=== PATIENT | female | born 1995 | race Caucasian/White ===

== ENCOUNTER 2017-01-30 03:23 | Emergency (ER) | payer BC ==
[~2017-01-30] VITALS: Ht 162.6 cm; Wt 74.8 kg
[~2017-01-30 03:23] MED LIST: BACTRIM DS TAB1 EACH PO; CRUTCH1 EACH; HYDROCODON-ACE1 EA11 PO; IBUPROFEN200 M1 PO; IBUPROFEN800 MG PO; KEFLEX500 MG PO; MIRTAZAPINE30 MG PO; NORCO 5-325 TA1 EACH PO; OXYCODONE HCL5 MG PO; SERTRALINE HCL100 MG PO; VITAMIN D5000 UNIT PO; ZOLOFT100 MG PO
== END 2017-01-30 03:58 | disposition home or self-care (01) ==
LOC: ED 03:23
DX: S00.83XA Contusion of other part of head, initial encounter (principal); F10.129 Alcohol abuse with intoxication, unspecified; F32.9 Major depressive disorder, single episode, unspecified; J45.909 Unspecified asthma, uncomplicated; F41.9 Anxiety disorder, unspecified; F17.200 Nicotine dependence, unspecified, uncomplicated; Z90.49 Acquired absence of other specified parts of digestive tract; Z88.8 Allergy status to other drugs, medicaments and biological substances; Z88.2 Allergy status to sulfonamides; Z79.899 Other long term (current) drug therapy; W01.198A Fall on same level from slipping, tripping and stumbling with subsequent striking against other object, initial encounter
CPT/HCPCS: 99283

== ENCOUNTER 2018-10-20 16:15 | Emergency (ER) | payer OTHER, BC ==
[~2018-10-20] VITALS: Ht 162.6 cm; Wt 81.2 kg
--- OUTSIDE RECORDS SUMMARY | 2018-10-20 16:18 | XMS ---
Ce Notification: MEÑO BETH Security Babbitt Spinner Events No recent Security Events currently on file CRITERIA MET - Group Notification CARE PROVIDERS DOCTOR RIVERA Primary Care Current PHONE: Unknown JAVIER NUNES Primary Care Current PHONE: Unknown DESMOND CANO Primary Care [facility] PHONE: Unknown Anthony Llanos Primary [facility] Mati AGOSTO PHONE: Unknown orbobo Case or O And M Supervisor Current PHONE: Unknown SIVAN ORTIZ Primary Care 07/16/2016-Current PHONE: [phone] Jaylon Rubio Current Orthopedic Surgery \T\ [facility] PHONE: Unknown Percy has no Care Guidelines for this patient. Yahir VISIT COUNT (12 MO.) Ubaldo Murguia TOTAL 2 NOTE: Visits indicate total known visits. ED/UCC VISIT TRACKING (12 MO.) 10/20/2018 16:16 [facility] TYPE: Emergency COMPLAINT: - R ANKLE INJURY 06/05/2018 04:02 [facility] [place] TYPE: Emergency DIAGNOSES: - Alcohol use, unspecified with intoxication delirium - 17 INPATIENT VISIT TRACKING (12 MO.) No inpatient visits to display in this time frame [email or web address]
== END 2018-10-20 18:45 | disposition home or self-care (01) ==
LOC: ED 16:15
DX: O9A.213 Injury, poisoning and certain other consequences of external causes complicating pregnancy, third trimester (principal); S93.401A Sprain of unspecified ligament of right ankle, initial encounter; O99.343 Other mental disorders complicating pregnancy, third trimester; F32.9 Major depressive disorder, single episode, unspecified; F41.9 Anxiety disorder, unspecified; Z87.891 Personal history of nicotine dependence; Z90.49 Acquired absence of other specified parts of digestive tract; Z91.09 Other allergy status, other than to drugs and biological substances; Z88.2 Allergy status to sulfonamides; Z88.1 Allergy status to other antibiotic agents; Z79.899 Other long term (current) drug therapy; Z3A.33 33 weeks gestation of pregnancy; W10.9XXA Fall (on) (from) unspecified stairs and steps, initial encounter
CPT/HCPCS: 73610; 99283